=== PATIENT | female | born 1960 | race Caucasian/White ===

== ENCOUNTER 2017-01-19 12:43 | Emergency (ER) | payer OTHER ==
[~2017-01-19] VITALS: Ht 162.6 cm; Wt 64.8 kg
[~2017-01-19 12:43] MED LIST: ADVAIR 250/501 DISK IH; CATAPRES0.2 MG PO; EFFEXOR37.5 MG PO; PRAVACHOL20 MG PO; SINGULAIR10 MG PO; SONATA10 MG PO; SYNTHROID137 MCG PO; TOVIAZ4 MG PO
[2017-01-19 13:41] LABS: HEMATOCRIT 40.5 % (36.0-46.0); MCHC 33.1 G/DL (30.0-36.0); MCV 93.8 FL (83-99); MEAN PLAT.VOLUME 10.2 uM^3 (9.5-12.4); PLATELET COUNT 187 K/uL (156-360); RBC DIS.WIDTH-CV 12.9 % (11.8-14.6); RBC DIS.WIDTH-SD 44.7 % (39-53); RED BLOOD COUNT 4.32 M/uL (3.80-5.20); WHITE BLOOD COUNT 3.4 K/uL (4.1-10.2)
[2017-01-19 13:57] LABS: CHLORIDE 102 mEq/L (99-109); POTASSIUM 3.8 mEq/L (3.7-5.4); SODIUM 136 mEq/L (136-147)
[2017-01-19 13:59] LABS: GLUCOSE 84 mg/dL (70-99)
[2017-01-19 14:00] LABS: ANION GAP 9 MEQ/L (2-14)
[2017-01-19 14:01] LABS: TOTAL BILIRUBIN 0.4 mg/dL (0.0-1.0)
[2017-01-19 14:03] LABS: ALKALINE PHOSPHATASE 64 IU/L (3-129); GFR ESTIMATE (CALCULATED) > 59 mL/min/
[2017-01-19 14:04] LABS: UREA NITROGEN (BUN) 10 mg/dL (9-23)
[2017-01-19 14:06] LABS: LIPASE 21 U/L (1.0-51.0)
[2017-01-19 14:10] LABS: ADD MIUA? NO; BILIRUBIN NEGATIVE; BLOOD NEGATIVE; COLOR STRAW ((YELLOW)); GLUCOSE (STRIP) NEGATIVE; KETONES NEGATIVE; LEUKOCYTES NEGATIVE; NITRITE NEGATIVE; PROTEIN (STRIP) NEGATIVE; SPECIFIC GRAVITY 1.004 (1.000-1.030); UCUL ADDED? NO; UROBILINOGEN 0.2 MG/DL (0.2-1.0)
[2017-01-19] MEDS ORDERED: PEPCID20 MG PO (18:33)
[2017-01-19] MEDS ORDERED: CARAFATE1 GM PO (18:33)
[2017-01-19 19:11] VITALS: BP 165/99
== END 2017-01-19 19:14 | disposition home or self-care (01) ==
LOC: EME 12:43
DX: R10.13 Epigastric pain (principal); I10 Essential (primary) hypertension; J45.909 Unspecified asthma, uncomplicated; E03.9 Hypothyroidism, unspecified
CPT/HCPCS: 76705; 80053; 81003; 83690; 85027; 93005; 99281; 99284

== ENCOUNTER → 2017-04-30 | Outpatient (CLI) | payer OTHER ==
[~2017-04-30] MED LIST changes: +CARAFATE1 GM PO; +PEPCID20 MG PO
== END | disposition home or self-care (01) ==
LOC: NUC 03-25 13:00
DX: K21.9 Gastro-esophageal reflux disease without esophagitis (principal); R92.8 Other abnormal and inconclusive findings on diagnostic imaging of breast; R93.8 Abnormal findings on diagnostic imaging of other specified body structures
CPT/HCPCS: 78227; A9537; J2805